=== PATIENT | female | born 1985 | race Caucasian/White ===

== ENCOUNTER 2016-11-23 15:44 | Emergency (ER) | payer OTHER ==
[~2016-11-23] VITALS: Ht 175.3 cm; Wt 60.0 kg
[2016-11-23 15:45] VITALS: BP 129/72; PULSE 76; RESP 20; TEMP 98; O2SAT 97
[2016-11-23] MEDS ORDERED: BENA12.5 PO (16:49)
[2016-11-23] MEDS ORDERED: MELA5TAB15 PO (16:49)
[2016-11-23] MEDS ORDERED: HYDROCORTISONE ACETATE 25 MG SUPP RECTAL SCH (17:15)
[2016-11-23] MEDS ORDERED: ACETAMINOPHEN/CODEINE 300 MG/30 MG TAB PO ONE (17:30)
[2016-11-23] MEDS ORDERED: HYDR2.5%T RECTAL (17:37)
[2016-11-23] MEDS ORDERED: IBUP-232 PO (17:37)
[2016-11-23] MEDS ORDERED: ANUC25SU RECTAL (17:37)
--- NOTE | 2016-11-23 17:38 | PD ---
HPI Chief Complaint: GI Complaint Time Seen by Provider: 16:43 Travel History International Travel<30 days: No Contact w/Intl Traveler<30days: No Traveled to known affect area: No History of Present Illness HPI Patient is a 31-year-old female who presents to emergency room for evaluation of hemorrhoids. Reports that she has been having problems with hemorrhoids for very long time, reports that she has had her hemorrhoids acting up on her over the past week. Patient reports that she has tried using sitz baths as well as applying anti-hemorrhoidal cream. Patient reports no relief of symptoms. Patient reports that her father has history of hemorrhoids as well and required surgical removal of hemorrhoids. Patient requesting medications for her hemorrhoid as well as pain medications for her hemorrhoids and request a surgeon to follow-up with [facility] Past Medical History Influenza Vaccination: No ?: Not LMP: 11/23/16 Tubal Ligation: Yes Past Surgical History Cholecystectomy: Yes Social History Alcohol Use: No Tobacco Use: Yes (1ppd ) Substance Use: No Allergies-Medications (Allergen,Severity, Reaction): Coded Allergies: No Known Allergies (Unverified , 11/23/16) Reported Meds & Prescriptions Reported Meds & Active Scripts Active Ibuprofen 600 Mg Tab 600 Mg PO Q6H PRN Anucort-Hc Supp (Hydrocortisone Acetate Supp) 25 Mg Supp 25 Mg RECTAL TID 30 Days Anusol-Hc Rectal (Hydrocortisone Rectal) 2.5% Cream 1 Applic RECTAL Q4-6H PRN Reported Melatonin 5 Mg Tab 5 Mg PO HS Benadryl Allergy Children Liq (Diphenhydramine HCl) 12.5 Mg/5 Ml Liq 10 Mg PO Q6H PRN Review of Systems General / Constitutional: No: Fever Eyes: No: Visual changes HENT: No: Headaches Cardiovascular: No: Chest Pain or Discomfort Respiratory: No: Shortness of Breath Gastrointestinal: Positive: Other (hemorrhoids), No: Abdominal Pain Genitourinary: No: Dysuria Musculoskeletal: No: Pain Skin: No Rash Neurologic: No: Weakness Psychiatric: No: Depression Endocrine: No: Polydipsia Hematologic/Lymphatic: No: Easy Bruising Physical Exam Narrative GENERAL: Well-nourished, well-developed patient. SKIN: Warm and dry. HEAD: Normocephalic. EYES: No scleral icterus. No injection or drainage. NECK: Supple, trachea midline. No JVD or lymphadenopathy. CARDIOVASCULAR: Regular rate and rhythm without murmurs, gallops, or rubs. RESPIRATORY: Breath sounds equal bilaterally. No accessory muscle use. GASTROINTESTINAL: Abdomen soft, non-tender, nondistended. Rectal exam performed with RN at bedside. Patient with multiple external hemorrhoids which are nonthrombosed with no active bleeding MUSCULOSKELETAL: No cyanosis, or edema. BACK: Nontender without obvious deformity. No CVA tenderness. Data Data Last Documented VS Vital Signs Date Time Temp Pulse Resp B/P Pulse Ox O2 Delivery O2 Flow Rate FiO2 11/23/16 15:45 98.0 76 20 129/72 97 Room Air Orders Hydrocortisone Supp (Hemorrhoidal Hc Sup (11/23/16 17:15) Acetamin-Codeine 300-30 Mg (Tylenol-Code (11/23/16 17:30) MDM Medical Decision Making Medical Screen Exam Complete: Yes Emergency Medical Condition: Yes Interpretation(s) Vital Signs Date Time Temp Pulse Resp B/P Pulse Ox O2 Delivery O2 Flow Rate FiO2 11/23/16 15:45 98.0 76 20 129/72 97 Room Air Differential Diagnosis External hemorrhoids Narrative Course Patient is a 31-year-old female who presents to emergency room for evaluation of external hemorrhoids. She reports that she has been having problems with external hemorrhoids are very long time, patient requesting medication for pain as well as for treatment of her hemorrhoids. Patient does have supposed external hemorrhoids on evaluation. we'll give a prescription for anusol cream. Discussed need for her to follow-up with Gen. surgery. Signs and symptoms of when to return to the emergency room was reviewed with patient in detail. Diagnosis Primary Impression: External hemorrhoids Referrals: Peyman Hernandez MD Patient Instructions: General Instructions Additional Instructions: Please call general surgeon first thing in the morning for earliest follow up Please use sitz bath, witch anna wipes to hemorrhoids Med/Other Pt SpecificInfo: Prescription(s) given Scripts Ibuprofen 600 Mg Das784 Mg PO Q6H PRN (Pain/Inflammation) #40 TAB Ref 0 Prov:Madelyn Ceja DO 11/23/16 Hydrocortisone Acetate Supp (Anucort-Hc Supp)25 Mg Supp25 Mg RECTAL TID 30 Days Ref 0 Prov:Madelyn Ceja DO 11/23/16 Hydrocortisone Rectal (Anusol-Hc Rectal)2.5% Cream1 Applic RECTAL Q4-6H PRN ( ITCHING/INFLAMMATION) #30 GM Ref 0 Prov:Madelyn Ceja DO 11/23/16 Disposition: 01 DISCHARGE HOME Condition: Stable Madelyn Ceja DO Nov 23, 2016 17:38
== END 2016-11-23 18:06 | disposition home or self-care (01) ==
LOC: NEPC 15:44
DX: K64.4 Residual hemorrhoidal skin tags (principal); F17.200 Nicotine dependence, unspecified, uncomplicated
CPT/HCPCS: 99282

== ENCOUNTER → 2016-12-19 | Outpatient (CLI) | payer OTHER ==
[~2016-12-19] MED LIST: ANUC25SU RECTAL; BENA12.5 PO; HYDR2.5%T RECTAL; IBUP-232 PO; MELA5TAB15 PO
--- NOTE | 2016-12-19 17:40 | RADRPT ---
EXAM DATE/TIME: 12/19/2016 17:17 [facility] COMPARISON: No previous studies available for comparison. INDICATIONS : Left foot pain for 1 month MEDICAL HISTORY : None. SURGICAL HISTORY : None. ENCOUNTER: Initial ACUITY: 1 month PAIN SCORE: 4/10 LOCATION: Left dorsal surface of foot FINDINGS: Three view examination of the left foot demonstrates no soft tissue swelling, dislocation, or fractur e. The tarsal bones appear intact. The interphalangeal and metatarsophalangeal joints are intact. The calcaneus is intact. Bony mineralization is normal. CONCLUSION: Unremarkable examination of the left foot. Tin Fox MD on December 19, 2016 at 17:37 Board Certified Radiologist. This report was verified electronically.
== END ==
LOC: HRAD 16:55
DX: M79.672 Pain in left foot (principal)
CPT/HCPCS: 73630